=== PATIENT | male | born 1960 | race Caucasian/White ===

== ENCOUNTER → 2021-03-23 | Outpatient (CLI) | payer OTHER ==
--- NOTE | 2021-03-23 12:29 | XR ---
EXAMINATION TYPE: XR ribs LT w pa chest xray DATE OF EXAM: 03/23/2021 CLINICAL HISTORY: Chest and left-sided rib pain after fall injury last week. TECHNIQUE: Single frontal view of the chest is obtained. A frontal and oblique images of the left-radha ed ribs are acquired. COMPARISON: None FINDINGS: There is bibasilar opacity favoring atelectasis and/or scarring. The cardiac silhouette s ize is upper limits of normal. The osseous structures are intact. Dedicated images of the left-sided ribs slightly suboptimal due to large body habitus. There are acut e slightly displaced fractures of the anterolateral left eighth through 10th ribs. Overlying soft tis john is unremarkable. IMPRESSION: 1. Acute slightly displaced fracture through the left anterolateral eighth through 10th ribs. 2. Bibasilar opacity favors scarring and/or atelectasis.
== END | disposition home or self-care (01) ==
LOC: RADXRYALE 11:57
PROVIDERS: ATTEND Nurse Practitioner
DX: S22.42XA Multiple fractures of ribs, left side, initial encounter for closed fracture (principal); R91.8 Other nonspecific abnormal finding of lung field; W19.XXXA Unspecified fall, initial encounter

== ENCOUNTER → 2021-07-14 | Outpatient (CLI) | payer OTHER ==
--- NOTE | 2021-07-14 18:08 | CONS ---
CONSULTATION DATE OF SERVICE: 07/14/2021 This 60-year-old gentleman has been evaluated in [facility] for possible obstructive sleep apnea-hypopnea syndrome. HISTORY OF PRESENT ILLNESS/SLEEP-WAKE EVALUATION: Patient's usual sleep schedule is from around 10 p.m. and he wakes up early in the morning. He does have problems with falling asleep. He snores and has been told that he has episodes of stopped breathing during sleep. The patient wakes up from sleep 2 or 3 times with nocturia, dry mouth, palpitations. In the morning the patient wakes up tired, has problems within with memory, concentration, depression, anxiety. He usually does not take naps. [place] Sleepiness Scale is 4. He takes two coffees in the morning and Coke with dinner. The patient is always moving during sleep. PAST MEDICAL HISTORY: Positive for atrial fibrillation, hypertension, CHF, mitral valve prolapse, COVID-19 in 2020. PAST SURGICAL HISTORY: Cardioversion in June 2020, hernia repair in 2005. MEDICATIONS: 1. Amiodarone 200 mg once a day. 2. Eliquis 5 mg twice a day. 3. Metoprolol 25 mg once a day. 4. Citalopram 20 mg once a day. 5. Furosemide 20 mg once a day. 6. Potassium supplement. 7. ProAir as needed. 8. Xanax 0.25 mg on p.r.n. basis. SOCIAL HISTORY: Negative for smoking. Alcohol consumption: None at the present time. FAMILY HISTORY: Hypertension, heart problems, epilepsy, snoring, lung problems. REVIEW OF SYSTEMS: Snoring, multiple awakenings from sleep, multiple movements during sleep, according to his . No fevers. No double vision. No recent chest pain. No shortness of breath. No abdominal pain. No bleeding episodes. No blood in the urine. No seizure episodes. PHYSICAL EXAMINATION: GENERAL: Pleasant gentleman without distress. VITAL SIGNS: BP 129/79, HR 72, RR 18, height 5 feet 8 inches, weight 218.6, body mass index .1, temperature 97.4, oxygen saturation at room air 97%. HEENT: PERRLA, EOMI, evaluation of oropharynx showed tongue protrudes midline. Extremely low position of soft palate; Mallampati IV. NECK: Supple, no JVD. Thyroid is not palpable. Neck measures 17 inches in circumference. LUNGS: Clear to percussion and to auscultation. Good air exchange. No wheezing or rhonchi. HEART: S1, S2 regular. No murmurs, gallops, or rubs. ABDOMEN: Slightly obese. EXTREMITIES: No clubbing or cyanosis. SPORTS PHOTOGRAPHER: Awake, alert, and oriented X3. Cranial nerves 2 to 7 intact. There is no fasciculation or atrophy. noted. No focal deficits observed. IMPRESSION: 1. Snoring, witnessed episodes of stopped breathing during sleep, extremely low position of soft palate, Mallampati IV, wide neck, 17 inches in circumference; obstructive sleep apnea-hypopnea syndrome. 2. History of restless leg symptoms and a significant amount of movements during sleep; possibly periodic limb movements. 3. History of atrial fibrillation, status post cardioversion. 4. History of congestive heart failure. 5. Hypertension. 6. History of mitral valve prolapse. 7. Status post hernia repair. 8. History of COVID-19 in 2020. PLAN: 1. Polysomnography for evaluation of patient's breathing during sleep. 2. CPAP/BiPAP titration if sleep study confirms obstructive sleep apnea-hypopnea syndrome. 3. Preferable position during sleep on the side. 4. No driving if patient feels any sleepiness. 5. I will see patient for follow up visit to explain results of testing and following plan. Thank you very much for referring this patient for consultation. Sincerely, Cam Bower MD, PhD, FAASM Diplomat of [place] [employer] Sleep Medicine Board of [place] [employer] [facility] [place] MMODL / IJN: [id number] /
== END ==
LOC: SLEEP 14:23
PROVIDERS: ATTEND Internal Medicine
DX: G47.33 Obstructive sleep apnea (adult) (pediatric) (principal); G25.81 Restless legs syndrome; I50.9 Heart failure, unspecified; I11.0 Hypertensive heart disease with heart failure; I34.1 Nonrheumatic mitral (valve) prolapse; Z98.890 Other specified postprocedural states; Z86.16 Personal history of COVID-19; F32.A Depression, unspecified; F41.9 Anxiety disorder, unspecified; Z79.01 Long term (current) use of anticoagulants
CPT/HCPCS: 99211

== ENCOUNTER → 2021-11-24 | Outpatient (CLI) | payer OTHER ==
--- NOTE | 2021-11-24 15:37 | XR ---
EXAMINATION TYPE: XR ribs LT w pa chest xray DATE OF EXAM: 11/24/2021 CLINICAL HISTORY: Chest and left-sided rib pain. TECHNIQUE: Single frontal view of the chest is obtained. A frontal and oblique images of left-sided r ibs. COMPARISON: Prior chest x-ray and left-sided rib x-rays March 23, 2021 FINDINGS: Patchy bibasilar opacities less prominent versus prior. Stable mild cardiomegaly. Upper hunter gs remain clear without pneumothorax. Dedicated images of left-sided ribs show healing or healed fractures of the anterolateral seventh thr ough 10th ribs. No acute displaced left-sided rib fractures. IMPRESSION: 1. Bibasilar linear scarring and/or atelectasis improved from prior. 2. Healed fractures of the anterolateral left seventh through 10th ribs. No acute displaced rib fract ures seen currently.
== END | disposition home or self-care (01) ==
LOC: RADXRYALE 15:10
PROVIDERS: ATTEND Family Medicine
DX: R07.82 Intercostal pain (principal)

== ENCOUNTER 2022-04-06 08:51 | Day surgery (SDC) | payer OTHER ==
[2022-04-05 08:48] VITALS: BMI 32.1
[~2022-04-06 08:51] MED LIST: LACTATED RINGERS 1,000 ML IV SCH
[2022-04-06 09:15] VITALS: TEMP 97.9
[2022-04-06] MEDS ORDERED: PROPOFOL 10 MG/ML 20 ML VIAL IV ONE (09:30)
--- NOTE | 2022-04-06 09:33 | P.GSHP ---
History of Present Illness H&P Date: 04/06/22 Chief Complaint: Positive colon guard test Is a 61-year-old male presents today for colonoscopy. Patient has a positive colon guard test. Past Medical History Past Medical History: Atrial Fibrillation, Hypertension, Mitral Valve Prolapse (MVP) Additional Past Medical History / Comment(s): + COLOGARD. HEART MURMUR History of Any Multi-Drug Resistant Organisms: None Reported Past Surgical History: Heart Catheterization Additional Past Surgical History / Comment(s): CARDIOVERSION Past Anesthesia/Blood Transfusion Reactions: No Reported Reaction Smoking Status: Never smoker - Past Family History Mother Family Medical History: No Reported History Medications and Allergies Home Medications Medication Instructions Recorded Confirmed Type ALPRAZolam [Xanax] 0.5 mg PO HS PRN 04/05/22 04/06/22 History Amiodarone [Cordarone] 100 mg PO DAILY 04/05/22 04/06/22 History Apixaban [Eliquis] 5 mg PO BID 04/05/22 04/05/22 History Metoprolol Succinate (ER) [Toprol 25 mg PO HS 04/05/22 04/06/22 History Xl] Allergies Allergy/AdvReac Type Severity Reaction Status Date / Time Penicillins Allergy Swelling Verified 04/06/22 09:11 Surgical - Exam Vital Signs Temp Pulse Resp BP Pulse Ox 97.9 F 81 18 142/93 99 04/06/22 09:12 04/06/22 09:12 04/06/22 09:12 04/06/22 09:12 04/06/22 09:12 - General well developed, well nourished, no distress - Eyes PERRL - ENT normal pinna - Neck no masses - Respiratory normal expansion - Cardiovascular Rhythm: regular - Abdomen Abdomen: soft, non tender Assessment and Plan Assessment: Positive colon guard test. We'll perform colonoscopy
--- NOTE | 2022-04-06 09:47 | P.OP ---
Date of Procedure: 04/06/22 Preoperative Diagnosis: Positive colon.colo guard Postoperative Diagnosis: Rectal polyp Diverticulosis Procedure(s) Performed: Colonoscopy Anesthesia: MAC Surgeon: Semaj Hazel Pathology: other (Polyp rectal) Condition: stable Disposition: PACU Description of Procedure: The patient's placed on the endoscopy table in the lateral position. He received IV sedation. Digital rectal exam was performed. This revealed no ebonized. Flexible colonoscope was then placed patient anus and passed throughout the entire colon. The ileocecal valve was visualized. The cecum, ascending and transverse colon appeared normal. In the descending and sigmoid colon there is extensive diverticular disease. Scope was then brought back the rectum and this appeared normal except for a large pedunculated polyp. This was removed with the snare. Scope was then withdrawn through the anus. Patient tolerated the procedure well.
[2022-04-06 09:49] VITALS: RESP 16
[2022-04-06 10:09] VITALS: BP 107/71; PULSE 74
== END 2022-04-06 11:25 | disposition home or self-care (01) ==
LOC: ORWHC2ENDO 08:51
PROVIDERS: ATTEND Surgery
DX: D12.8 Benign neoplasm of rectum (principal); K57.30 Diverticulosis of large intestine without perforation or abscess without bleeding; I48.91 Unspecified atrial fibrillation; I10 Essential (primary) hypertension; I34.1 Nonrheumatic mitral (valve) prolapse; Z98.890 Other specified postprocedural states; Z79.01 Long term (current) use of anticoagulants; Z79.899 Other long term (current) drug therapy; Z79.891 Long term (current) use of opiate analgesic; Z88.0 Allergy status to penicillin
CPT/HCPCS: 45385; J2704; 88305

== ENCOUNTER → 2023-04-20 | Outpatient (CLI) | payer MEDICARE, OTHER ==
--- NOTE | 2023-04-20 18:11 | CA ---
Transthoracic Echo Report Name: Rubio Duval Age: 62 Gender: M : 1960 Exam Date: 04/20/2023 15:05 Exam Location: [facility] Ht (in): 68 Wt (lb): 190 Ordering Physician: Juliette Rios MD Attending/Referring Phys: Juliette Rios MD Screen Printing Paster Alisha Cardoso RDCS Procedure CPT: Indications: I48.91 UNSPECIFIED ATRIAL FIBRILLATION Cardiac Hx: Technical Quality: Contrast 1: Total Dose (mL): Contrast 2: Total Dose (mL): MEASUREMENTS (Male / Female) Normal Values 2D ECHO LV Diastolic Diameter PLAX 4.9 cm 4.2 - 5.9 / 3.9 - 5.3 cm LV Systolic Diameter PLAX 4.0 cm IVS Diastolic Thickness 1.8 cm 0.6 - 1.0 / 0.6 - 0.9 cm LVPW Diastolic Thickness 1.5 cm 0.6 - 1.0 / 0.6 - 0.9 cm LV Relative Wall Thickness 0.7 RV Internal Dim ED PLAX 3.6 cm LV Diastolic Volume MOD BP 206.6 cm??? 67 - 155 / 56 - 104 cm??? LV Systolic Volume MOD BP 105.2 cm??? 22 - 58 / 19 - 49 cm??? LV Ejection Fraction MOD BP 49.1 % >= 55 % LV Diastolic Volume MOD 4C 190.9 cm??? LV Systolic Volume MOD 4C 113.4 cm??? LV Ejection Fraction MOD 4C 40.6 % LV Diastolic Length 4C 10.2 cm LV Systolic Length 4C 9.1 cm LV Diastolic Volume MOD 2C 193.1 cm??? LV Systolic Volume MOD 2C 80.4 cm??? LV Ejection Fraction MOD 2C 58.4 % LV Diastolic Length 2C 8.8 cm LV Systolic Length 2C 7.4 cm LA Volume 132.5 cm??? 18 - 58 / 22 - 52 cm??? LA Volume Index 64.5 cm???/m??? 16 - 28 cm???/m??? M-MODE Aortic Root Diameter MM 3.3 cm LA Systolic Diameter MM 6.2 cm LA Ao Ratio MM 1.9 AV Cusp Separation MM 2.1 cm DOPPLER AV Peak Velocity 152.6 cm/s AV Peak Gradient 9.3 mmHg AV Mean Velocity 108.8 cm/s AV Mean Gradient 5.2 mmHg AV Velocity Time Integral 27.8 cm LVOT Peak Velocity 79.6 cm/s LVOT Peak Gradient 2.5 mmHg LVOT Velocity Time Integral 14.1 cm MV Peak Velocity 97.4 cm/s MV Peak Gradient 3.8 mmHg MV Mean Velocity 77.5 cm/s MV Mean Gradient 2.5 mmHg MV Velocity Time Integral 38.1 cm MV Area PHT 3.7 cm??? Mitral E Point Velocity 91.5 cm/s Mitral A Point Velocity 88.9 cm/s Mitral E to A Ratio 1.0 MV Deceleration Time 203.4 ms MV E' Velocity 4.0 cm/s Mitral E to MV E' Ratio 22.9 FINDINGS Left Ventricle Severely increased septal wall thickness. Moderately Decreased left ventricular ejection fraction. Left ventricular ejection fraction is estimated at 35-40 %. Left ventricular cavity size normal. Right Ventricle Mild right ventricular dilatation. Right ventricular systolic pressure within normal limits. Right Atrium Normal right atrial size. Left Atrium Severely increased left atrial volume. Moderately increased left atrial area. Mitral Valve Trace mitral regurgitation. S/P MV repair. No mitral stenosis. Aortic Valve Trileaflet aortic valve. No aortic valve stenosis or regurgitation. Tricuspid Valve Structurally normal tricuspid valve. Mild tricuspid regurgitation. S/P Tricuspid valve repair. Pulmonic Valve Structurally normal pulmonic valve. Pericardium No pericardial effusion. Aorta Normal size aortic root and proximal ascending aorta. CONCLUSIONS 1. Moderate global hypokinesis of the left ventricle 2. Evidence of mitral valve annuloplasty with trace mitral regurgitation 3. Tricuspid valve annuloplasty with mild tricuspid regurgitation Previewed by: Dr. Fransico Burns MD (Electronically Signed) Final Date: 20 April 2023 18:10
== END | disposition home or self-care (01) ==
LOC: RADECHMAIN 14:53
PROVIDERS: ATTEND Surgery
DX: I36.1 Nonrheumatic tricuspid (valve) insufficiency (principal); I34.0 Nonrheumatic mitral (valve) insufficiency; I48.91 Unspecified atrial fibrillation; I10 Essential (primary) hypertension; I34.1 Nonrheumatic mitral (valve) prolapse
CPT/HCPCS: 93306